=== PATIENT | female | born 1950 | race Caucasian/White ===

== ENCOUNTER 2018-12-10 09:50 | Emergency (ER) | payer MEDICARE ==
[~2018-12-10 09:50] MED LIST: ALPR-429 PO; BENZ200C15 PO; ESCI10TA8 PO; ESCI20TA8 PO; GLUC100026 PO; MULT1CAP59 PO; PROM5SYR PO
[2018-12-10] MEDS ORDERED: ATOR10TA24 PO (09:57)
[2018-12-10] MEDS ORDERED: NS(*) 0.9% 1000 ML BAG 1,000 ML IV ONE (10:37)
--- NOTE | 2018-12-10 11:00 | ER Report ---
History and Physical Time Seen By MD: 11:00 Hx. of Stated Complaint: cough for 1 month. also states it feels lke food gets stuck in throat when she eats. HPI/ROS CHIEF COMPLAINT: Cough HISTORY OF PRESENT ILLNESS: 68-year-old female patient presents to emergency room with complaint of a cough. Patient states this been going on for the past month. She denies any fevers, chills, nausea, vomiting or diarrhea. Patient sta aidee she was living in [place] for the past month, visiting her niece who is in the hospital. She states that she has been back in [place] for approximately one month and has had this persistent cough. She states that she does have shortness of breath with activity. She states she is not taking any medication for this. She states she's not been seen previous to this for this cough. She denies having any chest pain, suicidal or homicidal ideation. REVIEW OF SYSTEMS: Respiratory: As noted above. Cardiovascular: No chest pain, no palpitations. Gastrointestinal: No vomiting, no abdominal pain. Musculoskeletal: No back pain. Allergies: Coded Allergies: No Known Drug Allergies (Unverified , 12/10/18) Home Meds Active Scripts Albuterol Sulfate (VENTOLIN HFA) 18 Gm Inh, 2 PUFF INH Q4-6H PRN for SHORTNESS OF BREATH, #1 INH Prov:DONAVON TREVIÑO [facility] 12/10/18 Prednisone (PREDNISONE) 20 Mg Tablet, 40 MG PO DAILY for 5 Days, #10 TAB Prov:DONAVON TREVIÑO [facility] 12/10/18 Azithromycin 250 Mg Tab (AZITHROMYCIN 250 MG TAB) 250 Mg Tablet, 1 TAB PO QDAY for 5 Days, #6 TAB Take 2 tabs today and then 1 tab a day until gone. Prov:DONAVON TREVIÑO [facility] 12/10/18 Escitalopram Oxalate (ESCITALOPRAM OXALATE) 20 Mg Tablet, 20 MG PO QDAY, #90 TAB 3 Refills Prov:REKHA GARCIA MD 09/20/17 Alprazolam (XANAX) 0.5 Mg Tablet, 0.5 TAB PO QDAY PRN for anxiety, #30 TAB Prov:REKHA GARCIA MD 09/20/17 Reported Medications Atorvastatin Calcium (LIPITOR) 10 Mg Tablet, 1 TAB PO QDAY, TAB 12/10/18 Glucosamine Sulfate 2KCL (GLUCOSAMINE) 1,000 Mg Tablet, 2 TAB PO QDAY 08/24/16 Multivitamin (MULTIVITAMINS) 1 Each Capsule, 1 EACH PO QDAY, CAPSULE 08/24/16 Past Medical/Surgical History Patient has a past medical history of hyperlipidemia, depression, anxiety. Patient has surgical history of hysterectomy. Reviewed Nurses Notes: Yes Hx Smoking: Yes Smoking Status: Former Smoker Constitutional Vital Sign - Last 24 Hours 12/10/18 12/10/18 12/10/18 12/10/18 09:54 10:00 10:30 11:00 Temp 98.2 Pulse 74 70 64 60 Resp 20 B/P (MAP) 164/80 150/84 (106) 123/83 (96) 160/89 (112) Pulse Ox 94 90 89 89 O2 Delivery Room Air 12/10/18 12/10/18 12/10/18 12/10/18 11:30 11:35 12:00 12:30 Pulse 64 65 73 Resp 16 B/P (MAP) 149/87 (107) 143/86 (105) 146/86 (106) Pulse Ox 93 91 12/10/18 12/10/18 13:00 13:30 Pulse 66 B/P (MAP) 139/79 (99) 153/87 (109) Pulse Ox 89 Physical Exam General Appearance: The patient is alert, has no immediate need for airway protection and no current signs of toxicity. Respiratory: Chest is non tender, lungs are wheezy in the bases to auscultation. Cardiac: regular rate and rhythm Gastrointestinal: Abdomen is soft and non tender, no masses, bowel sounds normal. Musculoskeletal: Neck: Neck is supple and non tender. Extremities have full range of motion and are non tender. Skin: No rashes or lesions. DIFFERENTIAL DIAGNOSIS: After history and physical exam differential diagnosis was considered for upper respiratory infection, as reflux, pneumonia, bronchitis, reactive airway disease, COPD. Medical Decision Making Data Points Result Diagram: 12/10/18 1200 12/10/18 1200 Laboratory Hematology Test 12/10/18 12:00 Red Blood Count 5.02 M/uL (4.17-5.56) Mean Corpuscular Volume 87.5 fL (80.0-96.0) Mean Corpuscular Hemoglobin 29.1 pg (26.0-33.0) Mean Corpuscular Hemoglobin Concent 33.2 g/dL (32.0-36.0) Red Cell Distribution Width 13.7 % (11.5-14.5) Mean Platelet Volume 9.4 fL (7.2-11.1) Neutrophils (%) (Auto) 45.8 % (39.4-72.5) Lymphocytes (%) (Auto) 32.8 % (17.6-49.6) Monocytes (%) (Auto) 9.6 % (4.1-12.4) Eosinophils (%) (Auto) 10.5 % (0.4-6.7) Basophils (%) (Auto) 1.3 % (0.3-1.4) Nucleated RBC Relative Count (auto) 0.0 /100WBC Neutrophils # (Auto) 2.9 K/uL (2.0-7.4) Lymphocytes # (Auto) 2.1 K/uL (1.3-3.6) Monocytes # (Auto) 0.6 K/uL (0.3-1.0) Eosinophils # (Auto) 0.7 K/uL (0.0-0.5) Basophils # (Auto) 0.1 K/uL (0.0-0.1) Nucleated RBC Absolute Count (auto) 0.00 K/uL Peripheral Blood Smear Yes Y/N Prothrombin Time 12.6 seconds (12.0-14.4) Prothromb Time International Ratio 0.94 Activated Partial Thromboplast Time 29 seconds (23-35) Sodium Level 141 mmol/L (137-145) Potassium Level 3.8 mmol/L (3.5-5.0) Chloride Level 109 mmol/L (98-107) Carbon Dioxide Level 24 mmol/L (22-31) Blood Urea Nitrogen 15 mg/dl (7-18) Creatinine 0.70 mg/dl (0.52-1.04) Glomerular Filtration Rate Calc > 60.0 Random Glucose 81 mg/dl (75-110) Calcium Level 9.3 mg/dl (8.4-10.2) Total Bilirubin 0.5 mg/dl (0.2-1.3) Aspartate Amino Transf (AST/SGOT) 35 U/L (0-35) Alanine Aminotransferase (ALT/SGPT) 42 U/L (0-56) Alkaline Phosphatase 81 U/L (0-126) Troponin I < 0.012 ng/ml Total Protein 6.9 g/dl (6.3-8.2) Albumin 4.2 g/dl (3.5-5.0) Chemistry Test 12/10/18 12:00 White Blood Count 6.3 k/uL (4.5-11.0) Red Blood Count 5.02 M/uL (4.17-5.56) Hemoglobin 14.6 g/dL (12.0-16.0) Hematocrit 43.9 % (34.0-47.0) Mean Corpuscular Volume 87.5 fL (80.0-96.0) Mean Corpuscular Hemoglobin 29.1 pg (26.0-33.0) Mean Corpuscular Hemoglobin Concent 33.2 g/dL (32.0-36.0) Red Cell Distribution Width 13.7 % (11.5-14.5) Platelet Count 260 K/uL (150-450) Mean Platelet Volume 9.4 fL (7.2-11.1) Neutrophils (%) (Auto) 45.8 % (39.4-72.5) Lymphocytes (%) (Auto) 32.8 % (17.6-49.6) Monocytes (%) (Auto) 9.6 % (4.1-12.4) Eosinophils (%) (Auto) 10.5 % (0.4-6.7) Basophils (%) (Auto) 1.3 % (0.3-1.4) Nucleated RBC Relative Count (auto) 0.0 /100WBC Neutrophils # (Auto) 2.9 K/uL (2.0-7.4) Lymphocytes # (Auto) 2.1 K/uL (1.3-3.6) Monocytes # (Auto) 0.6 K/uL (0.3-1.0) Eosinophils # (Auto) 0.7 K/uL (0.0-0.5) Basophils # (Auto) 0.1 K/uL (0.0-0.1) Nucleated RBC Absolute Count (auto) 0.00 K/uL Peripheral Blood Smear Yes Y/N Prothrombin Time 12.6 seconds (12.0-14.4) Prothromb Time International Ratio 0.94 Activated Partial Thromboplast Time 29 seconds (23-35) Glomerular Filtration Rate Calc > 60.0 Calcium Level 9.3 mg/dl (8.4-10.2) Total Bilirubin 0.5 mg/dl (0.2-1.3) Aspartate Amino Transf (AST/SGOT) 35 U/L (0-35) Alanine Aminotransferase (ALT/SGPT) 42 U/L (0-56) Alkaline Phosphatase 81 U/L (0-126) Troponin I < 0.012 ng/ml Total Protein 6.9 g/dl (6.3-8.2) Albumin 4.2 g/dl (3.5-5.0) Coagulation Test 12/10/18 12:00 Prothrombin Time 12.6 seconds Prothromb Time International Ratio 0.94 Activated Partial Thromboplast Time 29 seconds EKG/Imaging EKG Interpretation 12 lead EKG: Rhythm: normal sinus rhythm Woodrow: normal QRS: normal ST segments: Nonspecific ST abnormality Monitor Interpretation: Normal Sinus Rhythm Imaging PATIENT NAME: Ange Hammond : 1950 MR: [id number] V: [id number] EXAM DATE: ORDERING PHYSICIAN: ORLIN DE DIOS TECHNOLOGIST: Location: [facility] Patient: Ange Hammond : 1950 Visit/Account:[id number] Date of Sevice: 12/10/2018 Exam type: CHEST PA LAT History: Respiratory distress Comparison: 12/13/2015. Findings: Both lungs are hyperexpanded but clear. There is no focal infiltrate, pleural effusion or pneumothorax. Heart size is upper limits of normal. The osseous structures are unremarkable. IMPRESSION: 1. No acute cardiopulmonary disease. ED Course/Re-evaluation ED Course Upon arrival to the ED, patient admitted to an exam room, hx and physical obtained, differentials considered. Patient presents to emergency room with complaint of a cough. Patient states this been going on for the past month. She denies any fevers, chills, nausea, vomiting or diarrhea. Patient states she was living in [place] for the past month, visiting her niece who is in the hospital. She states that she has been back in [place] for approximately one month and has had this persistent cough. She states that she does have shortness of breath with activity. Reports the shortness of breath is worse at night. She states she is not taking any medication for this. She states she's not been seen previous to this for this cough. She denies having any chest pain, fever, suicidal or homicidal ideation. On exam, heart is regular and lungs are wheezy in the bases to auscultation. No abdominal pain with palpation. IV started, 1000mL NS infused, CBC, CMP, PTT, troponin, chest x-ray, EKG ordered. Labs unremarkable: troponin negative, WBC normal. Eosinophils are elevated at 10.5. Chest x-ray with no acute cardiopulmonary findings. EKG normal sinus rhythm. Duoneb ordered and patient reports this has helped her cough and breathing significantly. Patient also given 125mg Solumedrol. Discussed with patient that she likely has reactive airway disease due to clear chest x-ray, elevated eosinophils, and due to the fact the cough is worse at night. Will send patient home with albuterol inhaler and steroids to try to get the inflammation down and open up the airways. Will also prescribe an antibiotic to prevent any secondary bacterial infection. patient agrees with plan of care. Decision to Disposition Date: Dec 10, 2018 Decision to Disposition Time: 13:44 Depart Departure Latest Vital Signs Vital Signs Date Time Temp Pulse Resp B/P (MAP) Pulse Ox O2 Delivery O2 Flow Rate FiO2 12/10/18 13:30 153/87 (109) 12/10/18 13:00 66 89 12/10/18 11:35 16 12/10/18 09:54 98.2 Room Air Impression: Primary Impression: Reactive airway disease Condition: Improved Disposition: HOME OR SELF-CARE New Scripts Albuterol Sulfate (VENTOLIN HFA) 18 Gm Inh 2 PUFF INH Q4-6H PRN for SHORTNESS OF BREATH, #1 INH Prov: DONAVON TREVIÑO 12/10/18 Prednisone (PREDNISONE) 20 Mg Tablet 40 MG PO DAILY for 5 Days, #10 TAB Prov: DONAVON TREVIÑO 12/10/18 Azithromycin 250 Mg Tab (AZITHROMYCIN 250 MG TAB) 250 Mg Tablet 1 TAB PO QDAY for 5 Days, #6 TAB Take 2 tabs today and then 1 tab a day until gone. Prov: DONAVON TREVIÑO 12/10/18 Patient Instructions: Reactive Airways Disease (ED) Additional Instructions: Please drink plenty of water and get plenty of rest. Use your inhaler every 4-6 hours as needed for shortness of breath and wheezing. Take prednisone once a day for 5 days. Take your antibiotic as prescribed. Follow-up with your primary care provider at your next scheduled appointment. Please return to the ER if you experience increased shortness of breath, chest pain, fevers, or for any other concern. Problem Qualifiers Primary Impression: Reactive airway disease Asthma severity: unspecified severity Asthma persistence: unspecified Asthma complication type: uncomplicated Qualified Codes: J45.909 - Unspecified asthma, uncomplicated DONAVON TREVIÑO Dec 10, 2018 11:00
[2018-12-10] MEDS ORDERED: ALBUTEROL/IPRATROPIUM 3 ML NEB NEB ONE (11:10)
[2018-12-10 12:10] LABS: PLATELET COUNT, AUTOMATED 260 K/uL (150-450)
[2018-12-10 12:20] LABS: INR 0.94
[2018-12-10] MEDS ORDERED: methylPREDNIS SUCC 125 MG/2ML IVP ONE (13:00)
--- NOTE | 2018-12-10 13:14 | RADIOLOGY IMAGING REPORT ---
FACILITY: [facility] PATIENT NAME: Ange Hammond : 1950 MR: [id number] V: [id number] EXAM DATE: ORDERING PHYSICIAN: ORLIN DE DIOS TECHNOLOGIST: Location: [facility] Patient: Ange Hammond : 1950 Visit/Account:[id number] Date of Sevice: 12/10/2018 Exam type: CHEST PA LAT History: Respiratory distress Comparison: 12/13/2015. Findings: Both lungs are hyperexpanded but clear. There is no focal infiltrate, pleural effusion or pneumothor ax. Heart size is upper limits of normal. The osseous structures are unremarkable. IMPRESSION: 1. No acute cardiopulmonary disease. Report Dictated By: Drew Vásquez MD at 12/10/2018 1:09 PM Report E-Signed By: Drew Vásquez MD at 12/10/2018 1:10 PM WSN:[id number]
[2018-12-10 13:30] VITALS: BP 153/87
[2018-12-10] MEDS ORDERED: AZIT-18 PO (13:41)
[2018-12-10] MEDS ORDERED: PRED20TA6 PO (13:41)
[2018-12-10] MEDS ORDERED: ALB18R INH (13:41)
--- NOTE | 2018-12-10 14:57 | EKG ---
FACILITY: [facility] PATIENT NAME: DAVE JOYNER : [id number] MR: [id number] V: [id number] EXAM DATE: ORDERING PHYSICIAN: DONAVON TREVIÑO TECHNOLOGIST: JACQUELYN Test Reason : SOB Blood Pressure : / mmHG Vent. Rate : 066 BPM Atrial Rate : 066 BPM P-R Int : 184 ms QRS Dur : 084 ms QT Int : 424 ms P-R-T Axes : 053 -27 046 degrees QTc Int : 444 ms Normal sinus rhythm Anteroseptal infarct , age undetermined Abnormal ECG No previous ECGs available Confirmed by NATASHA CHÁVEZ ([id number]) on 12/10/2018 6:49:01 PM Referred By: LANRE Confirmed By:NATASHA CHÁVEZ
== END 2018-12-10 13:59 | disposition home or self-care (01) ==
LOC: ER 10:39
DX: J45.909 Unspecified asthma, uncomplicated (principal)
CPT/HCPCS: 71046; 84484; 85025; 85610; 85730; 93005; 94640; 96361; 96374; 99284; J2930; J7030; J7620; 82040; 82247; 82310; 82374; 82435; 82565; 82947; 84075; 84132; 84155; 84295; 84450; 84460; 84520

== ENCOUNTER → 2018-12-27 | Outpatient (CLI) | payer MEDICARE ==
[~2018-12-27] MED LIST changes: +ALB18R INH; +ATOR10TA24 PO; +AZIT-18 PO; +PRED20TA6 PO
== END ==
LOC: RESP 07:03
PROVIDERS: ATTEND Nurse Practitioner Family
DX: J45.909 Unspecified asthma, uncomplicated (principal); F17.200 Nicotine dependence, unspecified, uncomplicated; R05 Cough
CPT/HCPCS: 94060; 94726; 94729